=== PATIENT | female | born 1930 | race Caucasian/White ===

== ENCOUNTER → 2016-06-15 | Day surgery (SDC) | payer MEDICARE, BC ==
[~2016-06-15] MED LIST: ACETAMINOPHEN/HYDROcodone 325 MG/5 MG TAB ONE; LACTATED RINGER'S 1000 ML INJ 1,000 ML ONE; LEVA750T9 PO; METR-1 PO; PROPOFOL 200 MG/20 ML AMP IV ONE; RAMI5CAP7 PO; SIMV5TAB32 PO; ceFAZolin 2 GM PREMIX 50 ML ONE
--- NOTE | 2016-06-17 11:15 | MP ---
cc: SCOTT MARY M.D. DATE OF SURGERY: 06/15/2016 PREOPERATIVE DIAGNOSIS: stiff right total knee arthroplasty. POSTOPERATIVE DIAGNOSIS Stiff right total knee arthroplasty. PROCEDURE: Right knee manipulation under anesthesia with post manipulation fluoroscopy confirming no fracture. ANESTHETIC: The anesthetic is general SURGEON Scott Mary MD ESTIMATED BLOOD LOSS None SPECIMEN None COMPLICATIONS None known. INDICATION Zelda King is a 86-year-old female underwent right total knee arthroplasty and has had difficulty with rehab has had stiffness her knee. She now presents for manipulation under anesthesia risks, benefits thoroughly discussed in detail informed consent was obtained. PROCEDURE The patient brought the operating room. A wait time-out was performed and then she was placed under deep anesthetic. The gravity flexion was just shy of 80 degrees and her extension was between 10 and 15 degrees. We proceeded with very gentle manipulation into the flexed position and crepitation was noted from the knee joint. We then proceeded to straighten the knee and then gently proceed with flexion again and repeat with this maneuvering as breakdown and crepitation of scar tissue was palpated. We went into a deep flexion position about 145 degrees and then we proceeded with gentle extension manipulation and we did achieve some improved extension. She still had a resting flexion of a few degrees of flexion but we could gently push on it and it would go all the way straight and gravity flexion now was to 125 degrees. The ligamentous examination was stable and no instability extensor mechanism identified. We then obtained x-rays AP and lateral demonstrated final result and no evidence of fracture was identified. The patient was then return recovery room in stable condition. MD KWABENA Villaseñor/aaron /11:13 AM /11:10 AM
== END | disposition home or self-care (01) ==
LOC: ESDC 09:41
PROVIDERS: ATTEND Orthopaedic Surgery Sports Medicine
DX: M24.661 Ankylosis, right knee (principal); Z96.651 Presence of right artificial knee joint
CPT/HCPCS: 01380; 27570; 73560; 76000; J0690; J3010; J7120